=== PATIENT | female | born 1995 | race African-American/Black ===

== ENCOUNTER 2017-05-13 09:57 | Emergency (ER) | payer BC ==
[~2017-05-13] VITALS: Ht 162.6 cm; Wt 113.0 kg
[~2017-05-13 09:57] MED LIST: ALBU2.5V13 NEB; MOME13HF2 INH
[2017-05-13] MEDS ORDERED: KETOROLAC 60MG/2ML VIAL IM ONE (12:45)
[2017-05-13 13:57] VITALS: BP 121/71
== END 2017-05-13 14:47 | disposition home or self-care (01) ==
LOC: ER 14:27
DX: S50.11XA Contusion of right forearm, initial encounter (principal); J45.909 Unspecified asthma, uncomplicated; F12.10 Cannabis abuse, uncomplicated; V49.59XA Passenger injured in collision with other motor vehicles in traffic accident, initial encounter; Y93.89 Activity, other specified; Y99.8 Other external cause status; Y92.89 Other specified places as the place of occurrence of the external cause
CPT/HCPCS: 73090; 81025; 96372; 99284; J1885; Z7610

== ENCOUNTER 2017-12-01 19:11 | Emergency (ER) | payer BC ==
[~2017-12-01] VITALS: Ht 165.1 cm; Wt 123.0 kg
[2017-12-01] MEDS ORDERED: IBUPROFEN 600MG TABLET PO ONE (21:00)
[2017-12-01 22:37] VITALS: BP 119/73
== END 2017-12-01 22:41 | disposition home or self-care (01) ==
LOC: ER 20:14
DX: J02.8 Acute pharyngitis due to other specified organisms (principal); B97.89 Other viral agents as the cause of diseases classified elsewhere; J45.909 Unspecified asthma, uncomplicated
CPT/HCPCS: 87070; 87430; 99284